=== PATIENT | female | born 1955 | race Asian ===

== ENCOUNTER 2016-09-22 10:12 | Emergency (ER) | payer OTHER ==
[~2016-09-22] VITALS: Ht 152.4 cm; Wt 81.2 kg
[2016-09-22] MEDS ORDERED: OMEPRAZOLE40 MG OR (10:50)
[2016-09-22] MEDS ORDERED: METOPROLOL25 M1 OR (10:50)
[2016-09-22] MEDS ORDERED: CELEBREX200 MG PO (10:51)
[2016-09-22] MEDS ORDERED: PRAVACHOL20 MG PO (10:51)
[2016-09-22] MEDS ORDERED: MUCINEX ALLERG180 MG PO (10:51)
[2016-09-22] MEDS ORDERED: ASPIRIN ADULT L81 MG OR (10:52)
[2016-09-22] MEDS ORDERED: ZESTRIL40 MG OR (10:52)
[2016-09-22] MEDS ORDERED: POTASSIUM99 MG OR (10:53)
[2016-09-22] MEDS ORDERED: FURO20TA67 PO (10:53)
[2016-09-22 13:09] VITALS: BP 115/45; TEMP 98.7
== END 2016-09-22 13:10 | disposition home or self-care (01) ==
LOC: ED 10:12
DX: R10.30 Lower abdominal pain, unspecified (principal); Z98.890 Other specified postprocedural states
CPT/HCPCS: 99283

== ENCOUNTER 2016-09-28 06:58 | Outpatient (CLI) | payer OTHER ==
[~2016-09-28 06:58] MED LIST: ASPIRIN ADULT L81 MG OR; CELEBREX200 MG PO; FURO20TA67 PO; METOPROLOL25 M1 OR; MUCINEX ALLERG180 MG PO; OMEPRAZOLE40 MG OR; POTASSIUM99 MG OR; PRAVACHOL20 MG PO; ZESTRIL40 MG OR
== END 2016-09-28 22:52 | disposition home or self-care (01) ==
LOC: MAMMO 06:58
DX: Z12.31 Encounter for screening mammogram for malignant neoplasm of breast (principal)
CPT/HCPCS: G0202-TC

== ENCOUNTER 2016-11-27 07:49 | Outpatient (CLI) | payer OTHER | END 2016-11-27 19:59 | disposition home or self-care (01) | LOC: LABW 07:49 | DX: M81.0 Age-related osteoporosis without current pathological fracture (principal) | CPT/HCPCS: 36415; 82310 ==

== ENCOUNTER 2016-12-07 08:57 | Outpatient (CLI) | payer OTHER | END 2016-12-07 09:57 | disposition home or self-care (01) | LOC: INF 08:57 | DX: M81.0 Age-related osteoporosis without current pathological fracture (principal) | CPT/HCPCS: 96372; J0897 ==

== ENCOUNTER 2017-04-05 08:17 | Outpatient (CLI) | payer OTHER ==
[2017-04-05 08:33] LABS: PLATELET COUNT 165 K/uL (152-353)
[2017-04-05 08:53] LABS: POTASSIUM 4.5 mmol/L (3.6-5.2); SODIUM 139 mmol/L (136-145)
== END 2017-04-05 09:20 | disposition home or self-care (01) ==
LOC: LABW 08:17
PROVIDERS: Internal Medicine
DX: I10 Essential (primary) hypertension (principal)
CPT/HCPCS: 36415; 80053; 80061; 81000; 84439; 84443; 85027

== ENCOUNTER 2017-04-08 07:13 | Outpatient (CLI) | payer OTHER | END 2017-04-08 19:54 | disposition home or self-care (01) | LOC: MRI 07:13 | DX: M25.561 Pain in right knee (principal) ==

== ENCOUNTER 2017-05-05 16:14 | Emergency (ER) | payer OTHER ==
[~2017-05-05] VITALS: Ht 152.4 cm; Wt 79.4 kg
[2017-05-05 16:29] VITALS: TEMP 98.8
[2017-05-05 17:50] VITALS: BP 169/80
== END 2017-05-05 17:50 | disposition home or self-care (01) ==
LOC: ED 16:14
DX: R09.89 Other specified symptoms and signs involving the circulatory and respiratory systems (principal); T17.228A Food in pharynx causing other injury, initial encounter; T18.9XXA Foreign body of alimentary tract, part unspecified, initial encounter
CPT/HCPCS: 99282

== ENCOUNTER 2017-08-12 08:24 | Outpatient (CLI) | payer OTHER | END 2017-08-12 19:07 | disposition home or self-care (01) | LOC: CT 08:24 | DX: J34.89 Other specified disorders of nose and nasal sinuses (principal) ==

== ENCOUNTER 2017-09-30 08:11 | Outpatient (CLI) | payer OTHER | END 2017-09-30 10:00 | disposition home or self-care (01) | LOC: MAMMO 08:11 | DX: Z12.31 Encounter for screening mammogram for malignant neoplasm of breast (principal) ==

== ENCOUNTER 2017-10-29 08:00 | Outpatient (CLI) | payer OTHER ==
[2017-10-29 08:47] LABS: PLATELET COUNT 171 K/uL (152-353)
== END 2017-10-29 21:57 | disposition home or self-care (01) ==
LOC: LABW 08:00
PROVIDERS: Internal Medicine Sleep Medicine
DX: I10 Essential (primary) hypertension (principal); R73.09 Other abnormal glucose
CPT/HCPCS: 36415; 80053; 80061; 83036; 84443; 85027

== ENCOUNTER 2017-11-01 07:56 | Outpatient (CLI) | payer OTHER | END 2017-11-01 20:03 | disposition home or self-care (01) | LOC: RESP 07:56 | DX: I27.20 Pulmonary hypertension, unspecified (principal) ==

== ENCOUNTER 2017-11-18 11:24 | Outpatient (CLI) | payer OTHER | END 2017-11-18 19:20 | disposition home or self-care (01) | LOC: LABW 11:24 | DX: M81.0 Age-related osteoporosis without current pathological fracture (principal) | CPT/HCPCS: 36415; 82310 ==

== ENCOUNTER 2017-11-19 07:44 | Outpatient (CLI) | payer OTHER ==
[~2017-11-19] VITALS: Ht 152.4 cm; Wt 81.2 kg
== END 2017-11-19 11:00 | disposition home or self-care (01) ==
LOC: INF 07:44
DX: M81.0 Age-related osteoporosis without current pathological fracture (principal)
CPT/HCPCS: 96372; J0897

== ENCOUNTER 2017-12-22 09:31 | Day surgery (SDC) | payer OTHER ==
[2017-12-22 10:09] LABS: PLATELET COUNT 193 K/uL (152-353)
[2017-12-22 10:20] LABS: POTASSIUM 3.9 mmol/L (3.6-5.2)
== END 2017-12-22 14:49 | disposition home or self-care (01) ==
LOC: OR 09:31
PROVIDERS: Internal Medicine Gastroenterology
PROC: 0DJD8ZZ Inspection of Lower Intestinal Tract, Via Natural or Artificial Opening Endoscopic (ICD-10-PCS; principal; 2017-12-22)
DX: K57.30 Diverticulosis of large intestine without perforation or abscess without bleeding (principal); K64.8 Other hemorrhoids; Z80.0 Family history of malignant neoplasm of digestive organs; Z12.11 Encounter for screening for malignant neoplasm of colon
CPT/HCPCS: 80053; 85027; J2001; J2250; J2704; J3010; J3490

== ENCOUNTER 2018-04-25 09:38 | Outpatient (CLI) | payer OTHER | END 2018-04-25 21:38 | disposition home or self-care (01) | LOC: RAD 09:38 | DX: M89.9 Disorder of bone, unspecified (principal); Z12.31 Encounter for screening mammogram for malignant neoplasm of breast ==

== ENCOUNTER 2018-05-20 10:57 | Outpatient (CLI) | payer OTHER | END 2018-05-20 19:39 | disposition home or self-care (01) | LOC: LABW 10:57 | DX: M81.0 Age-related osteoporosis without current pathological fracture (principal) | CPT/HCPCS: 36415; 82310 ==

== ENCOUNTER 2018-05-23 07:41 | Outpatient (CLI) | payer OTHER ==
[~2018-05-23] VITALS: Ht 152.4 cm; Wt 81.2 kg
== END 2018-05-23 19:40 | disposition home or self-care (01) ==
LOC: INF 07:41
DX: M81.0 Age-related osteoporosis without current pathological fracture (principal)
CPT/HCPCS: 96372; J0897

== ENCOUNTER 2018-08-26 10:09 | Outpatient (CLI) | payer OTHER ==
[2018-08-26 10:40] LABS: PLATELET COUNT 176 K/uL (152-353)
[2018-08-26 11:00] LABS: POTASSIUM 4.4 mmol/L (3.6-5.2)
== END 2018-08-26 22:15 | disposition home or self-care (01) ==
LOC: LABW 10:09
PROVIDERS: Internal Medicine
DX: Z00.00 Encounter for general adult medical examination without abnormal findings (principal); I10 Essential (primary) hypertension; Z79.899 Other long term (current) drug therapy
CPT/HCPCS: 36415; 80053; 80061; 81000; 84439; 84443; 85027

== ENCOUNTER 2018-10-04 09:22 | Outpatient (CLI) | payer OTHER | END 2018-10-04 19:05 | disposition home or self-care (01) | LOC: MAMMO 09:22 | DX: Z12.31 Encounter for screening mammogram for malignant neoplasm of breast (principal); C50.811 Malignant neoplasm of overlapping sites of right female breast; M89.9 Disorder of bone, unspecified ==

== ENCOUNTER 2018-10-26 07:44 | Outpatient (CLI) | payer OTHER | END 2018-10-26 19:59 | disposition home or self-care (01) | LOC: RESP 07:44 | DX: R06.00 Dyspnea, unspecified (principal) ==

== ENCOUNTER 2018-11-21 07:49 | Outpatient (CLI) | payer OTHER ==
[~2018-11-21] VITALS: Ht 154.9 cm; Wt 81.2 kg
[2018-11-21 08:08] VITALS: BP 124/62; TEMP 97.9
== END 2018-11-21 08:50 | disposition home or self-care (01) ==
LOC: INF 07:49
DX: M81.0 Age-related osteoporosis without current pathological fracture (principal)
CPT/HCPCS: 82310; 96372; J0897

== ENCOUNTER 2018-12-22 07:49 | Outpatient (CLI) | payer OTHER ==
[2018-12-22 08:33] LABS: PLATELET COUNT 165 K/uL (152-353)
[2018-12-22 08:41] LABS: POTASSIUM 4.1 mmol/L (3.6-5.2)
== END 2018-12-22 20:27 | disposition home or self-care (01) ==
LOC: LABW 07:49
PROVIDERS: Internal Medicine
DX: R21 Rash and other nonspecific skin eruption (principal); I10 Essential (primary) hypertension; M81.0 Age-related osteoporosis without current pathological fracture; Z79.899 Other long term (current) drug therapy; M19.90 Unspecified osteoarthritis, unspecified site
CPT/HCPCS: 36415; 80053; 82164; 85027; 85651; 86038; 86140; 86430; 86592

== ENCOUNTER 2019-01-10 07:47 | Outpatient (CLI) | payer OTHER | END 2019-01-10 19:29 | disposition home or self-care (01) | LOC: NM 07:47 | DX: R11.0 Nausea (principal) | CPT/HCPCS: A9541 ==

== ENCOUNTER 2019-01-17 09:20 | Outpatient (CLI) | payer OTHER ==
[2019-01-17 09:59] LABS: PLATELET COUNT 177 K/uL (152-353)
[2019-01-17 10:27] LABS: POTASSIUM 4.1 mmol/L (3.6-5.2)
== END 2019-01-17 21:17 | disposition home or self-care (01) ==
LOC: LABW 09:20
PROVIDERS: Physician Assistant
DX: I10 Essential (primary) hypertension (principal); J42 Unspecified chronic bronchitis; M81.0 Age-related osteoporosis without current pathological fracture; R63.4 Abnormal weight loss; Z79.899 Other long term (current) drug therapy
CPT/HCPCS: 36415; 80053; 80061; 82306; 83036; 84439; 84443; 85027

== ENCOUNTER 2019-01-31 07:19 | Emergency (ER) | payer OTHER ==
[~2019-01-31] VITALS: Ht 154.9 cm; Wt 81.2 kg
[2019-01-31 07:29] VITALS: BP 127/52; TEMP 98.5
== END 2019-01-31 08:15 | disposition home or self-care (01) ==
LOC: ED 07:19
DX: S00.83XA Contusion of other part of head, initial encounter (principal); H10.11 Acute atopic conjunctivitis, right eye
CPT/HCPCS: 99281

== ENCOUNTER 2019-06-01 07:43 | Outpatient (CLI) | payer OTHER | END 2019-06-01 19:43 | disposition home or self-care (01) | LOC: CT 07:43 | DX: G44.211 Episodic tension-type headache, intractable (principal) ==

== ENCOUNTER 2019-06-05 07:36 | Outpatient (CLI) | payer OTHER ==
[~2019-06-05] VITALS: Ht 152.4 cm; Wt 80.7 kg
[2019-06-05 07:50] VITALS: BP 113/63; TEMP 98.4
== END 2019-06-05 08:45 | disposition home or self-care (01) ==
LOC: INF 07:36
DX: M81.0 Age-related osteoporosis without current pathological fracture (principal)
CPT/HCPCS: 36415; 82310; 96372; J0897

== ENCOUNTER 2019-06-22 09:16 | Outpatient (CLI) | payer OTHER | END 2019-06-22 19:43 | disposition home or self-care (01) | LOC: RAD 09:16 | DX: M70.51 Other bursitis of knee, right knee (principal) ==

== ENCOUNTER 2019-09-04 09:47 | Outpatient (CLI) | payer OTHER ==
[2019-09-04 10:32] LABS: PLATELET COUNT 163 K/uL (152-353)
[2019-09-04 10:57] LABS: POTASSIUM 4.5 mmol/L (3.6-5.2)
== END 2019-09-04 21:49 | disposition home or self-care (01) ==
LOC: LABW 09:47
PROVIDERS: Internal Medicine
DX: Z00.00 Encounter for general adult medical examination without abnormal findings (principal); Z79.899 Other long term (current) drug therapy; I10 Essential (primary) hypertension; Z13.820 Encounter for screening for osteoporosis; E55.9 Vitamin D deficiency, unspecified
CPT/HCPCS: 36415; 80053; 80061; 81000; 82306; 84439; 84443; 85027

== ENCOUNTER 2019-09-18 08:12 | Outpatient (CLI) | payer OTHER | END 2019-09-18 19:12 | disposition home or self-care (01) | LOC: RAD 08:12 | DX: R06.02 Shortness of breath (principal) ==

== ENCOUNTER 2019-10-05 09:34 | Outpatient (CLI) | payer OTHER | END 2019-10-05 22:40 | disposition home or self-care (01) | LOC: MAMMO 09:34 | DX: Z12.31 Encounter for screening mammogram for malignant neoplasm of breast (principal); C50.811 Malignant neoplasm of overlapping sites of right female breast; M89.8X8 Other specified disorders of bone, other site ==

== ENCOUNTER 2020-02-20 07:48 | Outpatient (CLI) | payer OTHER | END 2020-02-20 20:04 | disposition home or self-care (01) | LOC: MAMMO 07:48 | DX: Z12.31 Encounter for screening mammogram for malignant neoplasm of breast (principal); C50.811 Malignant neoplasm of overlapping sites of right female breast; M89.8X8 Other specified disorders of bone, other site ==

== ENCOUNTER 2020-04-26 08:39 | Outpatient (CLI) | payer OTHER | END 2020-04-26 20:26 | disposition home or self-care (01) | LOC: RAD 08:39 | DX: Z13.820 Encounter for screening for osteoporosis (principal); N95.8 Other specified menopausal and perimenopausal disorders ==

== ENCOUNTER 2020-06-04 09:50 | Outpatient (CLI) | payer OTHER | END 2020-06-04 19:30 | disposition home or self-care (01) | LOC: LABW 09:50 | DX: J30.89 Other allergic rhinitis (principal) | CPT/HCPCS: 36415; 82785; 86003 ==

== ENCOUNTER 2020-06-10 07:39 | Outpatient (CLI) | payer OTHER ==
[~2020-06-10] VITALS: Ht 152.4 cm; Wt 80.7 kg
[2020-06-10 08:15] VITALS: BP 104/60; TEMP 98.5
== END 2020-06-10 09:00 | disposition home or self-care (01) ==
LOC: INF 07:39
DX: M81.0 Age-related osteoporosis without current pathological fracture (principal)
CPT/HCPCS: 36415; 82310; 96372; J0897

== ENCOUNTER 2020-08-23 10:16 | Outpatient (CLI) | payer OTHER ==
[2020-08-23 10:39] LABS: PLATELET COUNT 132 K/uL (152-353)
== END 2020-08-23 19:20 | disposition home or self-care (01) ==
LOC: RAD 10:16
PROVIDERS: ATTEND Internal Medicine
DX: J32.1 Chronic frontal sinusitis (principal); Z11.59 Encounter for screening for other viral diseases
CPT/HCPCS: 36415; 85027; 87635; G2023; U0003

== ENCOUNTER 2020-10-07 08:07 | Outpatient (CLI) | payer OTHER | END 2020-10-07 19:15 | disposition home or self-care (01) | LOC: MAMMO 08:07 | PROVIDERS: ATTEND Internal Medicine Hematology & Oncology | DX: Z12.31 Encounter for screening mammogram for malignant neoplasm of breast (principal) ==

== ENCOUNTER 2020-10-17 07:44 | Outpatient (CLI) | payer OTHER | END 2020-10-17 19:45 | disposition home or self-care (01) | LOC: MAMMO 07:44 | PROVIDERS: ATTEND Internal Medicine Hematology & Oncology | DX: C50.811 Malignant neoplasm of overlapping sites of right female breast (principal); R92.8 Other abnormal and inconclusive findings on diagnostic imaging of breast | CPT/HCPCS: G0279 ==

== ENCOUNTER 2021-01-03 12:51 | Outpatient (CLI) | payer OTHER ==
[~2021-01-03] VITALS: Ht 152.4 cm; Wt 82.2 kg
[2021-01-03 14:03] VITALS: BP 103/50; TEMP 98.7
== END 2021-01-03 21:50 | disposition home or self-care (01) ==
LOC: INF 12:51
PROVIDERS: ATTEND Internal Medicine
DX: M81.0 Age-related osteoporosis without current pathological fracture (principal)
CPT/HCPCS: 96372; J0897

== ENCOUNTER 2021-04-14 10:05 | Outpatient (CLI) | payer OTHER | END 2021-04-14 21:43 | disposition home or self-care (01) | LOC: RAD 10:05 | PROVIDERS: ATTEND Physician Assistant | DX: M25.511 Pain in right shoulder (principal) ==

== ENCOUNTER 2021-04-18 08:17 | Outpatient (CLI) | payer OTHER | END 2021-04-18 23:04 | disposition home or self-care (01) | LOC: MAMMO 08:17 | PROVIDERS: ATTEND Internal Medicine Hematology & Oncology | DX: C50.811 Malignant neoplasm of overlapping sites of right female breast (principal); R92.8 Other abnormal and inconclusive findings on diagnostic imaging of breast | CPT/HCPCS: G0279 ==

== ENCOUNTER 2021-04-28 09:18 | Emergency (ER) | payer OTHER ==
[~2021-04-28] VITALS: Ht 152.4 cm; Wt 79.4 kg
[2021-04-28 09:20] VITALS: TEMP 98.2
[2021-04-28 10:21] LABS: PLATELET COUNT 170 K/uL (152-353)
[2021-04-28 10:30] LABS: POTASSIUM 5.1 mmol/L (3.6-5.2); SODIUM 137 mmol/L (136-145)
[2021-04-28 11:00] VITALS: BP 138/68
== END 2021-04-28 11:00 | disposition home or self-care (01) ==
LOC: ED 09:18
PROVIDERS: Emergency Medicine
DX: R00.2 Palpitations (principal)
CPT/HCPCS: 80048; 84484; 85027; 93005; 99283

== ENCOUNTER 2021-07-07 07:55 | Outpatient (CLI) | payer OTHER ==
[~2021-07-07] VITALS: Ht 152.4 cm; Wt 82.3 kg
[2021-07-07 09:13] VITALS: BP 131/59; TEMP 98.2
== END 2021-07-07 19:18 | disposition home or self-care (01) ==
LOC: INF 07:55
PROVIDERS: ATTEND Internal Medicine
DX: M81.0 Age-related osteoporosis without current pathological fracture (principal)
CPT/HCPCS: 36415; 82310; 96372; J0897

== ENCOUNTER 2021-09-25 11:04 | Outpatient (CLI) | payer OTHER | END 2021-09-25 19:09 | disposition home or self-care (01) | LOC: RAD 11:04 | PROVIDERS: ATTEND Internal Medicine | DX: M25.511 Pain in right shoulder (principal) ==

== ENCOUNTER 2021-10-09 08:13 | Outpatient (CLI) | payer OTHER | END 2021-10-09 21:17 | disposition home or self-care (01) | LOC: MAMMO 08:13 | PROVIDERS: ATTEND Internal Medicine Hematology & Oncology | DX: Z12.31 Encounter for screening mammogram for malignant neoplasm of breast (principal) ==

== ENCOUNTER 2022-01-05 07:44 | Outpatient (CLI) | payer OTHER ==
[~2022-01-05] VITALS: Ht 152.4 cm; Wt 79.4 kg
[2022-01-05 08:20] VITALS: BP 111/54; TEMP 98.5
== END 2022-01-05 18:52 | disposition home or self-care (01) ==
LOC: INF 07:44
PROVIDERS: ATTEND Internal Medicine
DX: M81.0 Age-related osteoporosis without current pathological fracture (principal)
CPT/HCPCS: 36415; 82310; 96372; J0897

== ENCOUNTER 2022-03-10 09:04 | Outpatient (CLI) | payer OTHER | END 2022-03-10 18:50 | disposition home or self-care (01) | LOC: RAD 09:04 | PROVIDERS: ATTEND Internal Medicine | DX: U07.1 COVID-19 (principal); R05.9 Cough, unspecified; R09.89 Other specified symptoms and signs involving the circulatory and respiratory systems ==

== ENCOUNTER 2022-03-31 13:48 | Outpatient (CLI) | payer OTHER ==
[2022-03-31 14:23] LABS: PLATELET COUNT 157 K/uL (152-353)
[2022-03-31 14:49] LABS: POTASSIUM 4.2 mmol/L (3.6-5.2)
== END 2022-03-31 19:13 | disposition home or self-care (01) ==
LOC: LAB 13:48
PROVIDERS: ATTEND Internal Medicine
DX: I10 Essential (primary) hypertension (principal); M81.0 Age-related osteoporosis without current pathological fracture
CPT/HCPCS: 80053; 80061; 81002; 82306; 84439; 84443; 85027

== ENCOUNTER 2022-04-27 07:30 | Outpatient (CLI) | payer OTHER | END 2022-04-27 18:47 | disposition home or self-care (01) | LOC: RAD 07:30 | PROVIDERS: ATTEND Internal Medicine | DX: M81.0 Age-related osteoporosis without current pathological fracture (principal) ==

== ENCOUNTER 2022-07-20 07:51 | Outpatient (CLI) | payer OTHER ==
[~2022-07-20] VITALS: Ht 152.4 cm; Wt 79.4 kg
[2022-07-20 08:34] VITALS: BP 103/52; TEMP 98.4
[2022-07-20 09:40] VITALS: BP 113/47; TEMP 98.4
== END 2022-07-20 19:52 | disposition home or self-care (01) ==
LOC: INF 07:51
PROVIDERS: ATTEND Internal Medicine
DX: M81.0 Age-related osteoporosis without current pathological fracture (principal)
CPT/HCPCS: 36415; 82310; 96374; J0897

== ENCOUNTER 2022-09-30 07:59 | Outpatient (CLI) | payer OTHER ==
[2022-09-30 08:16] LABS: PLATELET COUNT 172 K/uL (152-353)
[2022-09-30 08:36] LABS: POTASSIUM 4.3 mmol/L (3.6-5.2)
== END 2022-09-30 19:47 | disposition home or self-care (01) ==
LOC: LABW 07:59
PROVIDERS: ATTEND Internal Medicine
DX: I10 Essential (primary) hypertension (principal); E55.9 Vitamin D deficiency, unspecified
CPT/HCPCS: 36415; 80053; 80061; 81002; 82306; 84439; 84443; 85027

== ENCOUNTER 2022-10-19 08:28 | Outpatient (CLI) | payer OTHER | END 2022-10-19 19:04 | disposition home or self-care (01) | LOC: MAMMO 08:28 | PROVIDERS: ATTEND Internal Medicine Hematology & Oncology | DX: Z12.31 Encounter for screening mammogram for malignant neoplasm of breast (principal) ==

== ENCOUNTER 2023-01-21 08:34 | Outpatient (CLI) | payer OTHER ==
[~2023-01-21] VITALS: Ht 152.4 cm; Wt 79.4 kg
[2023-01-21 08:45] VITALS: BP 118/64; TEMP 98.6
== END 2023-01-21 20:47 | disposition home or self-care (01) ==
LOC: INF 08:34
PROVIDERS: ATTEND Internal Medicine
DX: M81.0 Age-related osteoporosis without current pathological fracture (principal)
CPT/HCPCS: 36415; 82310; J0897

== ENCOUNTER 2023-03-02 08:13 | Outpatient (CLI) | payer OTHER | END 2023-03-02 19:11 | disposition home or self-care (01) | LOC: CT 08:13 | PROVIDERS: ATTEND Internal Medicine | DX: J32.0 Chronic maxillary sinusitis (principal) ==

== ENCOUNTER 2023-03-16 14:33 | Outpatient (CLI) | payer OTHER ==
[2023-03-16 15:04] LABS: PLATELET COUNT 155 K/uL (152-353)
[2023-03-16 15:18] LABS: POTASSIUM 4.6 mmol/L (3.6-5.2)
== END 2023-03-16 19:27 | disposition home or self-care (01) ==
LOC: LAB 14:33
PROVIDERS: ATTEND Internal Medicine
DX: R10.31 Right lower quadrant pain (principal)
CPT/HCPCS: 80053; 85027

== ENCOUNTER 2023-03-17 10:10 | Outpatient (CLI) | payer OTHER | END 2023-03-17 20:25 | disposition home or self-care (01) | LOC: CT 10:10 | PROVIDERS: ATTEND Internal Medicine | DX: R10.31 Right lower quadrant pain (principal) | CPT/HCPCS: Q9963 ==

== ENCOUNTER 2023-10-21 08:01 | Outpatient (CLI) | payer OTHER | END 2023-10-21 19:22 | disposition home or self-care (01) | LOC: MAMMO 08:01 | PROVIDERS: ATTEND Internal Medicine Hematology & Oncology | DX: Z12.31 Encounter for screening mammogram for malignant neoplasm of breast (principal) ==